=== PATIENT | female | born 1960 | race Asian ===

== ENCOUNTER 2019-01-15 07:49 | Emergency (ER) | payer SELFPAY ==
[~2019-01-15] VITALS: Ht 162.6 cm; Wt 61.2 kg
--- NOTE | 2019-01-15 07:49 | NUR ---
PT MARILYA BLS TO ER BED 09
[2019-01-15 07:56] VITALS: BP 131/68
--- NOTE | 2019-01-15 08:00 | NUR ---
pt states she did not want to be assessed or seen by ermd. pt continues to get up out of bed and states her sister will be here to pick her up. pt [id number]. vss at this time.
--- NOTE | 2019-01-15 08:05 | NUR ---
PATIENT LEFT WITHOUT BEING SEEN BY DR. GARCIA. NO FURTHER CARE PROVIDED FOR PATIENT.
== END 2019-01-15 08:05 | disposition left against medical advice (07) ==
LOC: MED 07:49
DX: R53.1 Weakness (principal); R11.0 Nausea; Z53.21 Procedure and treatment not carried out due to patient leaving prior to being seen by health care provider